=== PATIENT | female | born 1975 | race Two or more races ===

== ENCOUNTER 2017-05-07 13:59 | Emergency (ER) | payer MEDICAID ==
[~2017-05-07] VITALS: Ht 165.1 cm; Wt 88.5 kg
[2017-05-07 14:10] VITALS: BP 142/81
== END 2017-05-07 14:33 | disposition home or self-care (01) ==
LOC: ER 13:59
DX: S30.860A Insect bite (nonvenomous) of lower back and pelvis, initial encounter (principal); Z90.89 Acquired absence of other organs; W57.XXXA Bitten or stung by nonvenomous insect and other nonvenomous arthropods, initial encounter; Y93.89 Activity, other specified; Y99.8 Other external cause status; Y92.89 Other specified places as the place of occurrence of the external cause

== ENCOUNTER 2018-08-01 21:05 | Emergency (ER) | payer MEDICAID ==
[~2018-08-01] VITALS: Ht 165.1 cm; Wt 90.7 kg
[2018-08-01 21:10] VITALS: BP 155/87
[2018-08-01] MEDS ORDERED: TETANUS-DIPTH-ACEL PERTUSSIS 0.5ML SYRG IM ONE (22:15)
[2018-08-01] MEDS ORDERED: cefTRIAXone SOD 1,000 MG VL IM ONE (22:15)
== END 2018-08-01 22:24 | disposition home or self-care (01) ==
LOC: ER 21:05
DX: S01.01XA Laceration without foreign body of scalp, initial encounter (principal); Z90.49 Acquired absence of other specified parts of digestive tract; W22.8XXA Striking against or struck by other objects, initial encounter; Y93.89 Activity, other specified; Y99.8 Other external cause status; Y92.810 Car as the place of occurrence of the external cause
CPT/HCPCS: 12002; 70450; 72125; 90471; 90715; 96372; 99284; J0696

== ENCOUNTER 2018-08-18 20:40 | Emergency (ER) | payer MEDICAID ==
[~2018-08-18] VITALS: Ht 165.1 cm; Wt 90.7 kg
[2018-08-18 21:00] VITALS: BP 157/89
== END 2018-08-18 23:19 | disposition home or self-care (01) ==
LOC: ER 20:40
DX: S01.01XD Laceration without foreign body of scalp, subsequent encounter (principal); Z48.02 Encounter for removal of sutures; Z90.49 Acquired absence of other specified parts of digestive tract; X58.XXXD Exposure to other specified factors, subsequent encounter

== ENCOUNTER 2021-06-28 17:58 | Emergency (ER) | payer MEDICAID ==
[~2021-06-28] VITALS: Ht 162.6 cm; Wt 81.6 kg
[2021-06-28 21:34] VITALS: BP 163/91
== END 2021-06-28 21:48 | disposition home or self-care (01) ==
LOC: ER 18:06
DX: S63.91XA Sprain of unspecified part of right wrist and hand, initial encounter (principal); E66.9 Obesity, unspecified; Z68.34 Body mass index [BMI] 34.0-34.9, adult; Z90.49 Acquired absence of other specified parts of digestive tract; W22.01XA Walked into wall, initial encounter; Y93.89 Activity, other specified; Y92.89 Other specified places as the place of occurrence of the external cause; Y99.8 Other external cause status
CPT/HCPCS: 73130